=== PATIENT | female | born 1985 | race Caucasian/White ===

== ENCOUNTER → 2021-02-23 | Day surgery (SDC) | payer OTHER ==
[2021-02-23 09:48] VITALS: RESP 16; TEMP 98.5
--- NOTE | 2021-02-23 11:43 | USB ---
EXAMINATION TYPE: US biopsy breast VAD LT, US biopsy breast add' l VAD LT DATE OF EXAM: 02/23/2021 CLINICAL HISTORY: R92.8, Abnormal mammogram (x2 site). FINDINGS: The procedure and risks were explained to the patient and written informed consent was obtained. Using local anesthetic, sterile technique and ultrasound guidance, a Celero core biopsy device was percutaneously placed through a small incision . The incision was made with a #11 blade for a left breast lesion located at 12:00.. 3 core samples were obtained. Biopsy marker was deployed. An additional lesion was sonographically biopsied. Using local anesthetic, sterile technique and ultrasound guidance, a Celero core biopsy device was percutaneously placed through a small incision . The incision was made with a #11 blade for a left breast lesion located at 3:00.. 2 core samples were obtained. Biopsy marker was deployed. Post procedural two-view mammogram confirmed biopsy marker clips satisfactory position of the biopsy marker. No complications. The patient tolerated the procedure well. The specimens were sent to pathology. The procedure was performed by Dr. Watson. IMPRESSION: 1. Technically successful ultrasound-guided left breast core biopsies. 2. Post procedural two-view mammogram of the left breast showing biopsy marker clips. 3. Awaiting pathology results. Pathology Results: Benign A. LEFT BREAST, 12:00 POSITION, CORE BIOPSY: Hyalinized and sclerotic fibroadenomatoid change with rare calcification; compatible with fibroadenoma in the appropriate clinical context (if specimen represents mass lesion). See note. B. LEFT BREAST, 3:00 POSITION, CORE BIOPSY: Hyalinized and sclerotic stroma with rare calcification; compatible with fibroadenoma in the appropriate clinical context (if specimen represents mass lesion). See note. Columnar cell change. Recommendation Follow up ultrasound of the left breast in 6 months. KATIE
[2021-02-23 11:51] VITALS: BP 139/85; PULSE 85
== END ==
LOC: RADUSWWP 02-22 14:01
PROVIDERS: ATTEND Surgery
DX: N60.22 Fibroadenosis of left breast (principal); R92.8 Other abnormal and inconclusive findings on diagnostic imaging of breast
CPT/HCPCS: 88305; 88342; 77065; 19083; 19084; A4648; J2001

== ENCOUNTER → 2021-03-01 | Outpatient (CLI) | payer OTHER ==
[2021-03-01 10:52] VITALS: BP 116/73; PULSE 85; RESP 18; TEMP 98
--- NOTE | 2021-03-01 11:19 | P.PN ---
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 Both areas were consistent with fibroadenoma. This was reviewed with Dr. Watson and it is felt that this is benign and concordant. Of concern is the fact that one of the areas is approximately 4 cm in size however this is not palpable it is not bothering the patient and she wishes to have this followed conservatively. Amanda Risk Evaluation: Unable to be done as age for evaluation starts at 37 [facility] evaluation: 2.6% over 10 years, average is 0.8% lifetime risk: 30.7% vs 11.1% Objective - Vital Signs Vital signs: Vital Signs Temp 98.0 F 03/01/21 10:49 Pulse 85 03/01/21 10:49 Resp 18 03/01/21 10:49 BP 116/73 03/01/21 10:49 Pulse Ox 100 03/01/21 10:49 Intake & Output 02/28/21 03/01/21 03/01/21 18:59 06:59 18:59 Weight 59.421 kg - Constitutional General appearance: Present: average body habitus - EENT Eyes: Present: EOMI ENT: Present: hearing grossly normal - Respiratory Respiratory: bilateral: CTA - Cardiovascular Heart sounds: normal: S1, S2 - Integumentary Integumentary Comment(s): Biopsy site left breast no evidence of infection or hematoma - Musculoskeletal Musculoskeletal: Present: gait normal - Psychiatric Psychiatric: Present: A&O x's 3, appropriate affect, intact judgment & insight Assessment and Plan Assessment: Impression: 1. Patient status post ultrasound-guided core biopsy of the left breast 2 sites both consistent with fibroadenoma 2. Family history positive mother diagnosed with breast cancer at 42 she did not have genetic testing 3. Fibrocystic breast changes 4. Patient is unable to palpate the fibroadenomas in her breast, and in the left breast at the 12 to 1 o'clock position I was able to feel approximately 3 and half to 4 cm fullness consistent with a smooth-walled lesion 5. We have discussed that she is increased risk for development of breast cancer but at this time she is not interested in chemo prevention Plan: 1. Based on the pathology findings the patient does not want to have excision at this time. 2. Patient is going to consider genetic testing 3. Repeat left breast ultrasound in 6 months 4. We have again discussed caffeine intake and the patient states that she is still drinking caffeine and still smoking we have discussed that this would exacerbate fibrocystic disease and she is well aware that she is recommended to stop these things CC: Raquel Vanegas
== END ==
LOC: WWCWWP 09:59
PROVIDERS: ATTEND Surgery
DX: D24.2 Benign neoplasm of left breast (principal); Z80.3 Family history of malignant neoplasm of breast

== ENCOUNTER → 2021-08-27 | Outpatient (CLI) | payer OTHER ==
--- NOTE | 2021-08-27 14:36 | USB ---
Reason for exam: clinical finding. History: Family history of breast cancer in mother at age 42. Benign US biopsy breast VAD LT of the left breast, February 23, 2021. Benign US biopsy breast add'l VAD LT of the left breast, February 23, 2021. Physical Findings: Nurse Summary: generalized lumpiness, BB on notable area at 10 o'clock, hard, mobile 0.5cm (nurse neha). US Breast LT Technologist: Janie Arriaza Left limited breast ultrasound including focal area of concern, retroareolar and axilla demonstrates a 0.3 x 0.2 x 0.4cm lesion too small to characterize at 10 o'clock, possible cyst cluster or complex cyst, 6 month follow up recommended, a 4.0 x 1.1 x 3.5cm solid lesion at 12 o'clock and a 1.3 x 0.4 x 0.9cm solid lesion at 3 o'clock, benign fibroadenomas, previously biopsied. These results were verbally communicated with the patient and result sheet given to the patient on 08/27/21. ASSESSMENT: Probably benign, BI-RAD 3 RECOMMENDATION: Follow-up diagnostic mammogram of both breasts in 6 months. Ultrasound of the left breast in 6 months. (10 o'clock)
== END | disposition home or self-care (01) ==
LOC: RADUSWWP 09:40
PROVIDERS: ATTEND Surgery
DX: D24.2 Benign neoplasm of left breast (principal)

== ENCOUNTER → 2021-09-07 | Outpatient (CLI) | payer OTHER ==
[2021-09-07 12:59] VITALS: BP 127/86; PULSE 98; RESP 16; TEMP 98.2
--- NOTE | 2021-09-07 13:14 | P.PN ---
Subjective Progress Note Date: 09/07/21 Principal diagnosis: abnormal left breast ultrasound Gio is a 35 year old white female seen initially in consultation for Raquel Vanegas regarding two lumps in her left breast. Her mother had breast cancer at 42 and therefore she had a baseline mammogram performed on . This revealed extremely dense breast. In the left breast of 5.7 cm mass was noted in the middle third and a smaller 1.4 cm mass in the anterior third. Questionable mass versus island of dense fibroglandular tissue in the right breast noted. Bilateral ultrasound was recommended. She underwent bilateral ultrasound on 01/24/21. On the ultrasound the right breast did not reveal any solid or cystic masses. The left breast revealed 2 solid masses one at 12:00 measuring 4.1 x 3.6 cm in dimension and one at 3:00 measuring 1.6 x 1.6 cm in dimension. She was recommended to undergo ultrasound-guided core biopsy of both of these lesions. Patient stated she was unable to feel the spots herself. She was not complaining of any nipple discharge or skin changes. She had not had any recent trauma or infection in the breast. She underwent an ultrasound core biopsy of both sites on 02-23-21. Pathology was fibroadenoma of both sites. A repeat ultrasound was preformed n 08-27-21 which was BIRAD 3. the repeat ultrasound revealed a 0.3 x 0.4 cm lesions too small to characterize at 10:00, possible cystic cluster, 6 month follow-up recommended. The 4 x 3.5 cm solid lesion at 12:00 and the 1.3 x 0.9 cm solid lesion at 3:00 the previously biopsied and noted to be benign fibroadenomas. These appeared to be stable. She does not have any complaints related to her breasts. She does not feel any changes in her breasts. Caffeine: pop all day long/ mountain dew and pepsi/ she has decreased the amount Nicotine:1PPD since 15; trying to decrease chocolate: daily Family history: Mother: Breast cancer 42 she did not have genetic testing great materanl aunt: breast Hormonal history: Menarche: 15 1 stillborn, breast fed: no, first born at 20 periods regular/ LMP 1 week ago BCP: 1 year, has had a tubal ligation Surgical History: Tubal ligation tonsil Medical History: none Social History: 1/PPD for 20 years alcohol: none drugs: none - Constitutional Constitutional: Denies chills, Denies fever - EENT Eyes: denies blurred vision, denies pain Ears: deny: decreased hearing, tinnitus Ears, nose, mouth and throat: Denies headache, Denies sore throat - Breasts Breasts: bilateral: as per HPI - Cardiovascular Cardiovascular: Denies chest pain, Denies shortness of breath - Respiratory Comment: smoker Respiratory: Reports cough - Gastrointestinal Gastrointestinal: Denies abdominal pain, Denies diarrhea, Denies nausea, Denies vomiting - Genitourinary (Female) Genitourinary: Denies dysuria, Denies hematuria - Menstruation Menstruation: Reports period normal - Musculoskeletal Musculoskeletal: Denies myalgias - Integumentary Integumentary: Denies pruritus, Denies rash - Neurological Neurological: Denies numbness, Denies weakness - Psychiatric Psychiatric: Denies anxiety, Denies depression - Endocrine Endocrine: Denies fatigue, Denies weight change - Hematologic/Lymphatic Comment: none - Allergic/Immunologic Allergic/Immunologic: Reports seasonal allergies Objective - Vital Signs Vital signs: Vital Signs Temp 98.2 F 09/07/21 12:57 Pulse 98 09/07/21 12:57 Resp 16 09/07/21 12:57 BP 127/86 09/07/21 12:57 Pulse Ox 100 09/07/21 12:57 Intake & Output 09/06/21 09/07/21 09/07/21 18:59 06:59 18:59 Weight 61.235 kg - Exam BMI 22.5 - Constitutional General appearance: Present: cooperative - EENT Eyes: Present: EOMI ENT: Present: hearing grossly normal - Neck Neck: Present: normal ROM - Respiratory Respiratory: bilateral: CTA - Cardiovascular Heart sounds: normal: S1, S2 - Gastrointestinal General gastrointestinal: Present: soft - Integumentary Integumentary: Present: normal turgor - Musculoskeletal Musculoskeletal: Present: gait normal - Psychiatric Psychiatric: Present: A&O x's 3, appropriate affect, intact judgment & insight - Additional findings Additional findings: breast examination: BRA: 32B Inspection: Grade 2 ptosis bilaterally Palpation: With this: Multiple positional exam fibrocystic changes no dominant masses or nodules of concern Right axilla: No adenopathy of concern Left breast: Multiple positional exam fibrocystic changes no dominant masses or nodules of concern Left axilla: No adenopathy of concern Assessment and Plan Assessment: impression: 1. Bilateral fibrocystic breast changes 2. Family history of breast cancer mother at 42 3. Ultrasound core biopsy left breast fibroadenoma 2 sites most recent ultrasound recommends repeat in 6 months Plan: 1. Bilateral breast ultrasound 6 months with physician exam at that time 2. Patient to call sooner any questions or concerns 3. Patient again encouraged to stop smoking and decrease caffeine intake CC: Raquel Vanegas
== END ==
LOC: WWCWWP 12:30
PROVIDERS: ATTEND Surgery
DX: N60.11 Diffuse cystic mastopathy of right breast (principal); N60.12 Diffuse cystic mastopathy of left breast; D24.2 Benign neoplasm of left breast; F17.210 Nicotine dependence, cigarettes, uncomplicated; Z80.3 Family history of malignant neoplasm of breast